=== PATIENT | female | born 1945 | race Caucasian/White ===

== ENCOUNTER 2017-06-26 15:06 | Emergency (ER) | payer OTHER ==
[2017-06-26 15:20] VITALS: TEMP 99
--- NOTE | 2017-06-26 16:06 | EDPHY ---
H & P Time Seen by Provider: 06/26/17 15:12 HPI/ROS: HPI Tripped and fell last week, facial bruising. 72-year-old female by private vehicle with her care provider. This patient reports that she tripped on her oxygen tubing last Monday or and landed on the left side of her face. She complains of a swelling to the left lateral brow ridge and bruising to this area as well as her cheek. She denies any new pain. No changes in vision. She denies any new extremity pain. No headache. No neck pain. She denies any loss of sensation or weakness in her extremities. She takes an aspirin daily. Otherwise, no other anticoagulation or antiplatelet agents. She denies any loss of consciousness at the time of the event. ROS: Constitutional: No fever, no chills. No weakness. Eyes: No discharge. No changes in vision. ENT: No sore throat. No nasal congestion or rhinorrhea. Respiratory: No cough. No shortness of breath. Cardiac: No chest pain, no palpitations. Gastrointestinal: No abdominal pain, no vomiting, no diarrhea. Genitourinary: No hematuria. No dysuria or increased frequency with urination. Musculoskeletal: No back pain. No neck pain. No myalgias or arthralgias. Skin: No rashes. As above. Neurological: No headache. No focal weakness or altered sensation. Past medical history: Diabetes, COPD and oxygen dependent at 2 L by nasal cannula 24-7 hours. Anxiety, bilateral shoulder pain from rotator cuff injuries , bilateral knee replacements, major depressive disorder, osteoarthritis spinal stenosis of lumbar region, chronic pain. Social history: Smoker. No alcohol. Here with her care provider. Physical Exam: General Appearance: Alert, no distress. This patient is responding to questions appropriately and in full sentences. This patient appears well- hydrated and well-nourished. Head: Normocephalic atraumatic. Face: Facial bones are stable on palpation. She has a large golf ball size hematoma left lateral brow ridge with diffuse ecchymosis spreading inferior down through her maxilla and mandibular area. No bony step-off or crepitus noted on palpation of this area. Eyes: Pupils equal and round and reactive to light, no pallor or injection. No lid erythema or edema. ENT, Mouth: Mucous membranes moist. Dentition is intact. No malocclusion of the jaw. No tongue lacerations or abrasions. Pharynx is clear. The bilateral nasal canals are clear. No septal hematoma. The external auditory canals are unremarkable. No hemotympanum bilaterally. Respiratory: There are no retractions, lungs are clear to auscultation with good air movement bilaterally. Chest wall is stable to AP and lateral palpation. Cardiovascular: Regular rate and rhythm. No murmur. Gastrointestinal: Abdomen is soft and nontender, no masses, bowel sounds normal. Neurological: Motor sensory function is intact. Cranial nerves are normal. Cerebellar function intact. Skin: Warm and dry, no rashes. No lacerations, abrasions or contusions. Musculoskeletal: Neck is supple and nontender. The trachea is midline. No midline cervical, thoracic, lumbar or sacral tenderness on palpation. No flank tenderness on palpation. Extremities are symmetrical, full range of motion. All joints in the bilateral upper and bilateral lower extremities range without pain or impingement. No tenderness on palpation of the long bones in the bilateral upper and bilateral lower extremities. Psychiatric: No agitation. No depression. Database: EKG: Imaging: CT scan of head without contrast: Left lateral brow ridge hematoma is noted. No evidence of brain pathology, skull fracture, facial fracture. Results were discussed with staff radiologist Dr. Vidal Holland. Procedures: Emergency department course: Vital signs reviewed. Patient declines any pain medication. She will be sent for CT imaging of her head. 4:50 p.m., patient re-evaluated. Resting comfortably at this time. Results of CT scan discussed with her. Repeat neurologic Assessment is nonfocal and unchanged from above. She feels comfortable going home at this time with her caregiver. Head injury precautions were reviewed. Return to emergency department precautions discussed. All of her questions were answered. She was discharged in good condition. Differential Diagnosis: The differential diagnosis on this patient includes but is not limited to mechanical fall, facial fracture. Cervical spine fracture, traumatic brain injury, acute stroke extremity injury, other significant traumatic injury unlikely. This represents a partial list of diagnoses considered. These considerations are based on history, physical exam, past history, reassessment and diagnostic testing. Impression: History of mechanical fall, facial contusions. Smoking Status: Former smoker Constitutional: Initial Vital Signs Temperature (C) 37.2 C 06/26/17 15:18 Heart Rate 88 06/26/17 15:18 Respiratory Rate 20 06/26/17 15:18 Blood Pressure 140/54 H 06/26/17 15:18 O2 Sat (%) 96 06/26/17 15:18 O2 Delivery Mode Nasal Cannula O2 (L/minute) 3 Allergies/Adverse Reactions: codeine Allergy (Verified 06/26/17 15:17) Sulfa (Sulfonamide Antibiotics) Allergy (Verified 06/26/17 15:17) Home Medications: Medication Instructions Recorded Albuterol 06/26/17 Aspirin 06/26/17 Atorvastatin Calcium 06/26/17 DIAZEPAM 06/26/17 FLUoxetine 06/26/17 Fluticasone Nasal 06/26/17 Furosemide 06/26/17 Gabapentin 06/26/17 Lidoderm 5% Patch (*) 06/26/17 Losartan Potassium 06/26/17 Magnesium 06/26/17 Metformin HCl 06/26/17 Morphine Sulfate 06/26/17 Oxycodone HCl 06/26/17 Potassium 06/26/17 Spiriva Handihaler 06/26/17 Symbicort 160-4.5 Mcg Inh (*) 06/26/17 Ventolin Hfa 06/26/17 Vitamin B Complex 06/26/17 Departure - Departure Disposition: Home, Routine, Self-Care Clinical Impression: Facial contusion, Head injury Condition: Good Instructions: Head Injury (ED) Additional Instructions: Read and follow provided instructions. Follow-up with your primary care physician in 1-2 days for re-evaluation as needed. Return to the emergency department for worsening headache, vomiting, confusion or other serious concerns. Referrals: Stacie Mathis MD [Primary Care Provider] - As per Instructions
[2017-06-26 17:09] VITALS: BP 110/60; PULSE 64; RESP 18; O2SAT 99
== END 2017-06-26 17:08 | disposition home or self-care (01) ==
LOC: CED 15:06
DX: S00.83XA Contusion of other part of head, initial encounter (principal); E11.9 Type 2 diabetes mellitus without complications; J44.9 Chronic obstructive pulmonary disease, unspecified; F17.200 Nicotine dependence, unspecified, uncomplicated; Z79.82 Long term (current) use of aspirin; Z79.84 Long term (current) use of oral hypoglycemic drugs; W01.0XXA Fall on same level from slipping, tripping and stumbling without subsequent striking against object, initial encounter
CPT/HCPCS: 70450-PO

== ENCOUNTER → 2018-12-07 | Outpatient (CLI) | payer OTHER, MEDICAID | LOC: CIMAGING 14:31 | PROVIDERS: ATTEND Nurse Practitioner | DX: M19.012 Primary osteoarthritis, left shoulder (principal); M19.011 Primary osteoarthritis, right shoulder | CPT/HCPCS: 73030-PO ==